=== PATIENT | female | born 1965 | race Hispanic/Latino ===

== ENCOUNTER → 2020-01-03 | Outpatient (CLI) | payer OTHER ==
[~2020-01-03] MED LIST: REGADENOSON 0.4 MG/5 ML PF SYG IVP SCH
== END | disposition home or self-care (01) ==
LOC: SHCH 08:47
PROVIDERS: ATTEND Internal Medicine Cardiovascular Disease
DX: R07.9 Chest pain, unspecified (principal); R06.00 Dyspnea, unspecified
CPT/HCPCS: 78452; 93017; 96374; A9500 ×2; J2785

== ENCOUNTER → 2020-01-04 | Outpatient (CLI) | payer OTHER | END | disposition home or self-care (01) | LOC: SHCH 10:00 | PROVIDERS: ATTEND Internal Medicine Cardiovascular Disease | DX: R07.9 Chest pain, unspecified (principal); I10 Essential (primary) hypertension | CPT/HCPCS: 93306; 93356 ==

== ENCOUNTER → 2020-01-23 | Outpatient (CLI) | payer OTHER ==
[~2020-01-23] VITALS: Ht 162.6 cm; Wt 97.9 kg
[~2020-01-23] MED LIST changes: +AMBEREN PO; +CARI1.5C PO; +DULO60CA64 PO; +ESOM20CA31 PO; +FLUTICASONE NASAL; +GABA300S PO; +LEFL20TA18 PO; +LISI40TA4 PO; +LORAZEPAM PO; +METH750T3 PO; +METO-408 PO; +NAPR220C15 PO; +OXYC1TAB12 PO; -REGADENOSON 0.4 MG/5 ML PF SYG IVP SCH; +SULF500T8 PO; +TURM500C9 PO
[2020-01-23 15:34] LABS: APPEARANCE,URINE Clear (CLEAR); BILIRUBIN,URINE Small (NEGATIVE); COLOR,URINE Dark Yellow (YELLOW); GLUCOSE, URINE (UA) Negative (NEGATIVE); KETONES,URINE Negative (NEGATIVE); LEUKOCYTE ESTERASE ,URINE Negative (NEGATIVE); NITRATE,URINE Negative (NEGATIVE); OCCULT BLOOD,URINE Negative (NEGATIVE); PROTEIN,URINE Negative (NEGATIVE)
[2020-01-23 15:37] LABS: BASOPHILS % (AUTO) 0.8 % (0.0-5.0); EOSINOPHILS % (AUTO) 4.7 % (0.0-8.0); HEMATOCRIT 29.8 % (36-48); LYMPHOCYTES % (AUTO) 27.4 % (21.0-51.0); MEAN CORPUSCULAR HEMOGLOBIN 26.2 pg (27.0-33.0); MEAN CORPUSCULAR HGB CONC 29.9 g/dL (32.0-36.0); MEAN CORPUSCULAR VOLUME 87.6 fL (79-99); MONOCYTES % (AUTO) 7.6 % (3.0-13.0); NEUTROPHILS % (AUTO) 59.2 % (40.0-77.0); PLATELET COUNT (AUTO) 262 K/uL (130-400); RED CELL DISTRIBUTION WIDTH 14.2 % (11.0-15.5); WHITE BLOOD COUNT (AUTO) 10.5 K/uL (4.8-10.8)
[2020-01-23 15:42] LABS: CREATININE 0.8 mg/dL (0.5-1.5)
[2020-01-23 15:44] LABS: INR 0.93 (0.85-1.15); PROTHROMBIN TIME 10.1 SEC (9.6-11.6)
[2020-01-23 16:05] LABS: BACTERIA,URINE Few /HPF (None Seen); MUCUS,URINE Few LPF (None Seen); RBC,URINE 0-1 /HPF (0-1); SQUAMOUS EPITHELIAL CELL,UR Few /HPF (0-2); WBC,URINE 0-1 /HPF (0-1)
[2020-01-24 10:16] VITALS: BP 147/62
--- NOTE | 2020-01-24 10:30 | NUR ---
REPORT CALLED BELIA CALVO AND REPORTED ABNORM CBC RESULTS. NO NEW ORDERS AT THIS TIME. BELIA WILL CALL BACK IF ANY NEW ORDERS POST CONSULTING WITH DR LYONS
--- NOTE | 2020-01-24 10:50 | NUR ---
NEW ORDERS RECEIVED NEW ORDERS FOR STOOL GUAIAC FROM BELIA WILLARD WITH DR LIRA. PT NOTIFIED TO BE HERE SOON POSSIBLE
--- NOTE | 2020-01-24 13:10 | NUR ---
guaiac stool result positive. had nivia franz paged. will wait for call back
--- NOTE | 2020-01-24 13:35 | NUR ---
REPORT REPORTED POSITIVE GUAIAC DAYNA RESULTS TO BELIA WILLARD WITH DR LIRA. RECEIVED ORDERS TO CANCEL PROCEDURE
== END | disposition home or self-care (01) ==
LOC: DAH 10:00 → EDSTATUS 01-25 08:00
PROVIDERS: ATTEND Internal Medicine Cardiovascular Disease
DX: Z01.810 Encounter for preprocedural cardiovascular examination (principal); R07.9 Chest pain, unspecified; I10 Essential (primary) hypertension; Z79.01 Long term (current) use of anticoagulants; Z79.899 Other long term (current) drug therapy; Z88.8 Allergy status to other drugs, medicaments and biological substances; Z88.1 Allergy status to other antibiotic agents
CPT/HCPCS: 36415; 71045; 80048; 81001; 82270; 85025; 85610; 85730; 93005

== ENCOUNTER → 2020-02-10 | Outpatient (CLI) | payer OTHER | END | disposition home or self-care (01) | LOC: RAH 08:35 | PROVIDERS: ATTEND Internal Medicine | DX: K21.9 Gastro-esophageal reflux disease without esophagitis (principal); R11.2 Nausea with vomiting, unspecified; R12 Heartburn | CPT/HCPCS: 74240 ==

== ENCOUNTER → 2020-03-21 | Outpatient (CLI) | payer OTHER | END | disposition home or self-care (01) | LOC: RAH 11:06 | PROVIDERS: ATTEND Internal Medicine Gastroenterology | DX: R11.2 Nausea with vomiting, unspecified (principal) | CPT/HCPCS: 78264; A9541 ==

== ENCOUNTER 2020-04-04 06:02 | Day surgery (SDC) | payer OTHER ==
[2020-04-02 10:05] LABS: BASOPHILS % (AUTO) 0.9 % (0.0-5.0); EOSINOPHILS % (AUTO) 7.1 % (0.0-8.0); HEMATOCRIT 37.7 % (36-48); MEAN CORPUSCULAR HEMOGLOBIN 25.6 pg (27.0-33.0); MEAN CORPUSCULAR HGB CONC 30.8 g/dL (32.0-36.0); MEAN CORPUSCULAR VOLUME 83.2 fL (79-99); MONOCYTES % (AUTO) 7.5 % (3.0-13.0); NEUTROPHILS % (AUTO) 48.3 % (40.0-77.0); PLATELET COUNT (AUTO) 259 K/uL (130-400); RED BLOOD CELL COUNT(AUTO) 4.53 MIL/uL (4.00-5.50); WHITE BLOOD COUNT (AUTO) 8.6 K/uL (4.8-10.8)
[2020-04-02 10:08] LABS: CREATININE 0.8 mg/dL (0.5-1.5); POTASSIUM 3.5 mmol/L (3.5-5.1)
[2020-04-02 10:20] LABS: INR 0.94 (0.85-1.15); PARTIAL THROMBOPLASTIN TIME 29.2 SEC (26.3-35.5); PROTHROMBIN TIME 10.2 SEC (9.6-11.6)
[2020-04-02 10:26] LABS: APPEARANCE,URINE Clear (CLEAR); BILIRUBIN,URINE Small (NEGATIVE); COLOR,URINE Dark Yellow (YELLOW); GLUCOSE, URINE (UA) Negative (NEGATIVE); KETONES,URINE Negative (NEGATIVE); LEUKOCYTE ESTERASE ,URINE Small (NEGATIVE); NITRATE,URINE Negative (NEGATIVE); OCCULT BLOOD,URINE Negative (NEGATIVE); PROTEIN,URINE Negative (NEGATIVE); UROBILINOGEN,URINE 0.2 mg/dL (0.2-1.0)
[2020-04-02 11:04] LABS: BACTERIA,URINE Rare /HPF (None Seen); RBC,URINE 0-1 /HPF (0-1); SQUAMOUS EPITHELIAL CELL,UR Few /HPF (0-2); WBC,URINE 0-1 /HPF (0-1)
[2020-04-03 13:16] VITALS: BP 138/64
[~2020-04-04] VITALS: Ht 165.1 cm; Wt 98.1 kg
[2020-04-04] VITALS (13 sets, daily range): BP systolic 106–153; BP diastolic 57–86
[~2020-04-04 06:02] MED LIST changes: +ASPI-1197 PO; +CARV6.25 PO; -ESOM20CA31 PO; +HYDR12.54 PO; -LEFL20TA18 PO; -METO-408 PO; -NAPR220C15 PO; +ONDA8TAB12 PO; +PANT40TA54 PO; +SODIUM CHLORIDE 0.9% 500ML 500 ML IV SCH; +VITAMIN D PO
[2020-04-04] MEDS ORDERED: SODIUM CHLORIDE 0.9% 1000ML 1,000 ML IV ONE (06:18)
[2020-04-04] MEDS ORDERED: IOHEXOL 350 MG/ML 100ML INFUS..BTL IV ONE (07:04)
[2020-04-04] MEDS ORDERED: LIDOCAINE HCL 2% 20ML ONE (07:04)
[2020-04-04] MEDS ORDERED: HEPARIN SODIUM 1000UNIT/ML 10ML VIAL ONE (07:04)
[2020-04-04] MEDS ORDERED: IOHEXOL-350 50ML VIAL IV ONE (07:04)
[2020-04-04] MEDS ORDERED: SODIUM CHLORIDE 0.9% 1000ML 1,000 ML IV SCH (08:00)
[2020-04-04] MEDS ORDERED: ACETAMINOPHEN-CODEINE 300/30MG TAB PO PRN ×2 (08:00)
== END 2020-04-04 14:30 | disposition home or self-care (01) ==
LOC: DAH 06:02
PROVIDERS: ATTEND Internal Medicine Cardiovascular Disease
DX: I25.118 Atherosclerotic heart disease of native coronary artery with other forms of angina pectoris (principal); F32.9 Major depressive disorder, single episode, unspecified; F41.9 Anxiety disorder, unspecified; Z90.49 Acquired absence of other specified parts of digestive tract; Z98.890 Other specified postprocedural states; Z79.01 Long term (current) use of anticoagulants; Z88.1 Allergy status to other antibiotic agents; Z79.899 Other long term (current) drug therapy
CPT/HCPCS: 36415; 71045; 80048; 81001; 85025; 85610; 85730; 93005; 93458; A4215; A4216; A4221; A4222; A4223 ×3; A4606; A4663; C1894; J1644 ×2; J3490; J7030; Q9965; Q9967 ×2; 96360

== ENCOUNTER 2021-04-23 15:11 | Emergency (ER) | payer OTHER ==
[~2021-04-23 15:11] MED LIST changes: -LISI40TA4 PO; +LISI40TA9 PO; +METH-812 PO; -METH750T3 PO; -SODIUM CHLORIDE 0.9% 500ML 500 ML IV SCH
== END 2021-04-23 15:32 | disposition left against medical advice (07) ==
LOC: EDH 15:11
DX: R11.2 Nausea with vomiting, unspecified (principal); Z53.21 Procedure and treatment not carried out due to patient leaving prior to being seen by health care provider

== ENCOUNTER 2024-12-16 05:54 | Day surgery (SDC) | payer BC ==
[2024-12-15 11:48] LABS: IMMATURE GRANULOCYTE ABSOLUTE 0.03 K/uL (0-1); NUCLEATED RED BLOOD CELLS 0.0 % (0.0-0.19); PLATELET COUNT (AUTO) 204 K/uL (130-400); RED BLOOD CELL COUNT(AUTO) 4.27 MIL/uL (4.00-5.50); RED CELL DISTRIBUTION WIDTH 13.0 % (11.0-15.5); WHITE BLOOD COUNT (AUTO) 10.2 K/uL (4.8-10.8)
[2024-12-15 11:57] LABS: INR 0.97 (0.85-1.15)
[2024-12-15 12:30] VITALS: BP 135/54; PULSE 72; RESP 18; TEMP 97.4
[2024-12-15 13:15] LABS: CREATININE 0.6 mg/dL (0.5-1.0); GLOMERULAR FILTR. RATE CALC 104.0 mL/min (>90); GLUCOSE,RANDOM 114.0 mg/dL (70-105); SODIUM SERUM 136.0 mmol/L (136-145); UREA NITROGEN, BLOOD 13.0 mg/dL (7-18)
[2024-12-16] VITALS (11 sets, daily range): BP systolic 24–139; BP diastolic 32–83; PULSE 16–109; RESP 15–23; TEMP 97.4–97.9
[~2024-12-16] VITALS: Ht 162.6 cm; Wt 85.5 kg
[~2024-12-16 05:54] MED LIST changes: -AMBEREN PO; +AMLO-257 PO; -ASPI-1197 PO; -CARI1.5C PO; -CARV6.25 PO; +DESV50TA10 PO; -DULO60CA64 PO; -FLUTICASONE NASAL; +GABA-534 PO; -GABA300S PO; +HYDR-3421 PO; -HYDR12.54 PO; -LISI40TA9 PO; -LORAZEPAM PO; +LOSA100T59 PO; +MINO2.5T3 PO; -ONDA8TAB12 PO; -OXYC1TAB12 PO; +SULF500T PO; -SULF500T8 PO; -TURM500C9 PO; -VITAMIN D PO; +ZIPR20CA23 PO
[2024-12-16] MEDS ORDERED: LACTATED RINGERS 1000ML 1,000 ML IV ONE (06:09)
[2024-12-16] MEDS ORDERED: GABAPENTIN 300 MG CAPSULE ONE (06:39)
[2024-12-16] MEDS ORDERED: FAMOTIDINE 20MG VIAL IV ONE (06:39)
[2024-12-16] MEDS ORDERED: LIDOCAINE PF 100MG/5ML (2%) SYRINGE 5ML ONE (06:52)
[2024-12-16] MEDS ORDERED: ACET-2079 PO (07:11)
[2024-12-16] MEDS: RACEPINEPHRINE HCL 2.25% 0.5 ML NEB SOLN NEB ONE (08:02)
[2024-12-16] MEDS: RACEPINEPHRINE HCL 2.25% 0.5 ML NEB SOLN ONE (08:02)
--- NOTE | 2024-12-16 08:40 | NUR ---
PT ARRIVED CAOX 4 VSS NAD NO PAIN DRESSING TO RIGHT WRIST NOTED AND INTACT.
--- NOTE | 2024-12-16 08:53 | OP ---
Operative Note: DATE OF PROCEDURE: 12/16/24 SURGEON: MARTHA RADER MD CHURN TENDER: Libia Caro ANESTHESIA: General ANESTHESIOLOGIST/CONTINUING EDUCATION DIRECTOR: Cecelia Herrera PREOPERATIVE DIAGNOSIS: Right index and small finger trigger fingers POSTOPERATIVE DIAGNOSIS: Right index and small finger trigger fingers PROCEDURE: Right index and small finger trigger finger releases ESTIMATED BLOOD LOSS: None INDICATIONS: 59-year-old female with right index and small finger trigger fingers. Patient has locking and clicking of the finger with range of motion that has become debilitating. After discussion of the risk, benefits, and alternatives, the patient voluntarily agreed to undergo the aforementioned procedure. DESCRIPTION OF PROCEDURE: Patient was properly identified in the preoperative holding area. Surgical site marking was verified and surgery consent reviewed. The patient was then taken to the operating room and placed in supine position on the OR table. After induction of general anesthesia, preoperative antibiotics were given, all bony prominences were well-padded, and a well padded tourniquet was applied but not inflated at this time. The right upper extremity was then prepped and draped in usual sterile fashion. Surgical time out was done verifying correct surgery, side, site, and location to be performed. We then began the procedure by exsanguinating the arm using an Esmarch and inflating a tourniquet to 250 mmHg. We made an approximately 1 cm long incision at the level of the A1 cecille on the volar aspect of the metacarpal head for the index finger. Here we came down sharply through the subcutaneous tissue and identified the A1 cecille. We then began to come through this a little bit at a time using a 15 blade with small amounts of pressure being applied. The cecille was then are not released. We then checked proximally and distally with a freer elevator to ensure we had full release. The tendons were then delivered into the wound using abdominal and the center retractor. There was no significant pathologic tissue noted on the tendons. We excised a cyst that was present on the A1 cecille. This procedure was then repeated for the small finger on the right hand. No significant pathologic tissue was seen on the tendons. No cyst was present at the A1 cecille on the small finger. We then thoroughly irrigated out the wounds with normal saline and injected the surrounding tissue with Marcaine. The wounds were then closed with 3-0 nylon interrupted simple suture pattern. Soft sterile dressing was applied with Xeroform, 4 x 4's, and Coban. The tourniquet was then deflated. The patient was then awakened from anesthesia and taken to the recovery in stable condition. MARTHA RADER MD Dec 16, 2024 08:53
--- NOTE | 2024-12-16 09:06 | NUR ---
INSTRUCTIONS VIA PHONE GIVEN TO NEXT DOOR NEIGHBOR VERBAL GIVEN TO PT. IV REMOVED SITE ASYMPTOMATIC. PENDING RIDE
--- NOTE | 2024-12-16 09:12 | NUR ---
PT TAKEN OUT VIA WHEELCHAIR NEIGHBOR DRIVING
== END 2024-12-16 09:13 | disposition home or self-care (01) ==
LOC: DAH 05:54
PROVIDERS: ATTEND Student in an Organized Health Care Education/Training Program
DX: M65.321 Trigger finger, right index finger (principal); M65.351 Trigger finger, right little finger; M65.322 Trigger finger, left index finger; M65.352 Trigger finger, left little finger; M79.641 Pain in right hand; M79.642 Pain in left hand; I10 Essential (primary) hypertension; K21.9 Gastro-esophageal reflux disease without esophagitis; M79.7 Fibromyalgia; M19.90 Unspecified osteoarthritis, unspecified site; Z88.1 Allergy status to other antibiotic agents; Z88.6 Allergy status to analgesic agent; Z90.49 Acquired absence of other specified parts of digestive tract; Z79.01 Long term (current) use of anticoagulants; Z90.89 Acquired absence of other organs; Z98.890 Other specified postprocedural states; Z79.899 Other long term (current) drug therapy
CPT/HCPCS: 80048; 84703; 85025; 85610; 85730; 36415; 26055 ×2; 94640; A6260; A4663; A4649; J7120; J3490; J3010; J1100 ×2; J0665; J2003; J2704; J2405 ×2; J0690; A6223; A4930 ×2; A5120; A4215; A4213; A4222; A4221; A4216; A4223 ×2

== ENCOUNTER 2024-12-17 07:17 | Emergency (ER) | payer BC ==
[~2024-12-17] VITALS: Ht 162.6 cm; Wt 86.2 kg
[~2024-12-17 07:17] MED LIST changes: +ACET-2079 PO
--- NOTE | 2024-12-17 08:27 | ERN ---
General Chief Complaint: Other Problems Stated Complaint: NUMBNESS TO HAND S/P SURGERY Time Seen by MD: 07:20 History of Present Illness Initial Comments 59F presents for R hand numbness. Patient had a trigger finger release yesterady by Dr Negrete. Patient reports "numbness" to fingers 2-5 today that is not improving. She has sensation to the palm. Good cap refil. She denies bleeding or significant pain. Allergies: Coded Allergies: doxepin (Unverified Allergy, Unknown, 04/12/24) erythromycin base (Unverified Allergy, Unknown, 12/30/19) ketorolac (Unverified Allergy, Unknown, 01/24/20) Home Meds Active Scripts Acetaminophen with Codeine (Acetaminophen-Cod #3 Tablet) 300 Mg-30 Mg Tablet, 1 TAB PO Q6HPRN PRN for pain for 7 Days, #28 TAB 0 Refills Prov:MARTHA NEGRETE MD 12/16/24 Reported Medications Gabapentin (Gabapentin) 400 Mg Capsule, 400 MG PO BID, CAP 12/15/24 Methocarbamol (Methocarbamol) 750 Mg Tablet, 750 MG PO BID, TAB 12/15/24 Ziprasidone HCl (Ziprasidone HCl) 20 Mg Capsule, 20 MG PO DAILY, CAP 04/13/24 Losartan Potassium (Losartan Potassium) 100 Mg Tablet, 100 MG PO DAILY, TAB 04/13/24 Sulfasalazine (Azulfidine) 500 Mg Tablet, 500 MG PO DAILY, TAB 04/13/24 Minoxidil (Minoxidil) 2.5 Mg Tablet, 2.5 MG PO BID, TAB 04/13/24 Amlodipine Besylate (Amlodipine Besylate) 5 Mg Tablet, 5 MG PO DAILY, TAB 04/13/24 Desvenlafaxine (Desvenlafaxine ER) 50 Mg Tab.er.24h, 50 MG PO DAILY, TAB 04/13/24 Hydroxyzine HCl (Hydroxyzine HCl) 25 Mg Tablet, 25 MG PO AD PRN for ITCHING, TAB 04/13/24 Pantoprazole Sodium (Pantoprazole Sodium) 40 Mg Tablet.dr, 40 MG PO DAILY, TAB 04/03/20 Discontinued Reported Medications Gabapentin (Neurontin) 300 Mg Capsule, 300 MG PO BID, CAP 04/13/24 [Veoz] No Conflict Check, 45 MG PO DAILY 04/13/24 Sulfasalazine (Azulfidine) 500 Mg Tablet, 500 MG PO HS, TAB QOD (EVERY OTHER DAY) 04/13/24 Methocarbamol (Methocarbamol) 500 Mg Tablet, 250 MG PO BID, TAB 04/13/24 Discontinued Scripts Acetaminophen with Codeine (Acetaminophen-Cod #3 Tablet) 300 Mg-30 Mg Tablet, 1 TAB PO Q6HPRN PRN for pain for 7 Days, #28 TAB 0 Refills Prov:MARTHA NEGRETE MD 04/18/24 Past Medical History Past Medical History: Hypertension Past Surgical History: Tonsillectomy, Cholecystectomy, Other Surgical History Other: RIGHT HAND TENDON RELEASE OF INDEX AND SMALL FINGER MDM 59F presents for R hand numbness. Patient had a trigger finger release yesterady by Dr Negrete. Patient reports "numbness" to fingers 2-5 today that is not improving. She has sensation to the palm. Good cap refil. She denies bleeding or significant pain. CC: Right hand numbness status post trigger release yesterday Historian: Patient Comorbidities: Trigger finger Limitations by social determinants of health: None Differential diagnosis: Surgical complication, prolonged anesthesias Vital signs are stable Clinical exam shows no major swollen, wounds appear well healed. Good color, warm, cap refill less than 2 seconds in all digits. He is able to flex and extend all joints in the hand. She does report decreased sensation digits two through five and distal to the palm. She has a sensation to the thenar eminence and thumb. No labs or imaging indicated Discussed the case with Dr. Negrete, she recommends giving of the day and return to the ER tomorrow morning if she continues with numbness. If she does return to the emergency department tomorrow morning, consult Dr. Negrete from the emergency room. ED Course Vital Signs Date Time Temp Pulse Resp B/P (MAP) Pulse Ox O2 Delivery O2 Flow Rate FiO2 12/17/24 07:45 98.2 71 17 158/72 97 Room Air* 0 21 12/17/24 07:18 98.2 69 18 152/71 99 Room Air DX & DISP Disposition: Discharge Departure Impression: Primary Impression: Post-operative complication Additional Impression: Hand numbness Condition: Stable Additional Instructions: Keep the hand elevated as much as possible today. Take ibuprofen as needed for pain. Return to this emergency department tomorrow morning if you continue with numbness. Referrals: DOM CUTLER MD (PCP) SANDY REED DO Dec 17, 2024 08:27
[2024-12-17 08:41] VITALS: BP 149/62; PULSE 56; RESP 17; TEMP 98; O2SAT 96
--- NOTE | 2024-12-17 08:41 | NUR ---
DC PATIENT WAS DC'D BY DR REED I EXPLAINED TO PATIENT TO FOLLOW UP WITH PCP, PROVIDED INFO BASED ON DIAGNOSIS AND ANSWERED ANY FOLLOW UP QUESTIONS PATIENT AMBULATED OUT OF ED, NO COMPLICATIONS
== END 2024-12-17 08:50 | disposition home or self-care (01) ==
LOC: EDH 07:17
DX: R20.0 Anesthesia of skin (principal); I10 Essential (primary) hypertension; Z79.899 Other long term (current) drug therapy; Z88.1 Allergy status to other antibiotic agents; Z90.49 Acquired absence of other specified parts of digestive tract; Z90.89 Acquired absence of other organs; Z98.890 Other specified postprocedural states
CPT/HCPCS: 99282